=== PATIENT | male | born 1960 | race Caucasian/White ===

== ENCOUNTER 2018-01-08 18:24 | Emergency (ER) | payer OTHER ==
[2018-01-08] MEDS ORDERED: ONDANSETRON HCL/PF 4 MG/2 ML VIAL ONE (19:28)
[2018-01-08] MEDS ORDERED: HYDROMORPHONE INJ 2 MG/ML DISP.SYRIN ONE (19:29)
[2018-01-08] MEDS ORDERED: HYDROMORPHONE 1 MG/1 ML DISP.SYRIN IV ONE (19:30)
[2018-01-08] MEDS ORDERED: ONDANSETRON HCL/PF - ER 4 MG/2 ML VIAL IV ONE (19:30)
[2018-01-08] MEDS ORDERED: IV NS 0.9% 500 ML BAG IV ONE (19:30)
[2018-01-08] MEDS ORDERED: LIDOCAINE 1%-EPI 1:100,000 20 ML VIAL ONE (19:41)
[2018-01-08] MEDS ORDERED: DIAZEPAM 5 MG/ML 2 ML DISP.SYRIN IV ONE (22:00)
[2018-01-08] MEDS ORDERED: LORAZEPAM INJ 2 MG/ML VIAL ONE (22:04)
[2018-01-08] MEDS ORDERED: LORAZEPAM INJ 2 MG/ML VIAL IV ONE (22:30)
== END 2018-01-09 00:35 | disposition home or self-care (01) ==
DX: L76.22 Postprocedural hemorrhage of skin and subcutaneous tissue following other procedure (principal); Z85.828 Personal history of other malignant neoplasm of skin; Z98.890 Other specified postprocedural states